=== PATIENT | male | born 1970 | race Caucasian/White ===

== ENCOUNTER 2018-05-22 13:53 | Inpatient (IN) | payer OTHER ==
[~2018-05-22] VITALS: Ht 180.3 cm; Wt 133.8 kg
[~2018-05-22 13:53] MED LIST: ADULT ASPIRIN81 MG; CIPRO500 MG PO; ENALAPRIL MALEAT5 MG; OMEPRAZOLE20 MG; PEPCID20 MG PO
[2018-05-25] MEDS ORDERED: CIPRO500 MG PO (08:31)
== END 2018-05-25 11:09 | disposition home or self-care (01) | DRG 727 ==
LOC: ER 13:53 → SEC-K 05-23 09:23 → MEDJ 05-23 15:20 → MEDI 05-23 15:20
PROVIDERS: ADMIT Internal Medicine
DX: N41.0 Acute prostatitis (principal); A41.89 Other specified sepsis; N39.0 Urinary tract infection, site not specified; K29.60 Other gastritis without bleeding; B96.29 Other Escherichia coli [E. coli] as the cause of diseases classified elsewhere